=== PATIENT | female | born 1965 | race Caucasian/White ===

== ENCOUNTER 2018-07-24 19:25 | Emergency (ER) | payer OTHER ==
[2018-07-24] MEDS: IBUPROFEN 200 MG TAB PO (21:00)
[2018-07-24] MEDS: ACETAMINOPHEN 325 MG TAB PO (21:00)
[2018-07-24] MEDS: LORAZEPAM 1 MG TAB PO (21:00)
== END 2018-07-24 22:46 | disposition home or self-care (01) ==
LOC: FTE 19:25
DX: S61.451A Open bite of right hand, initial encounter (principal); S59.902A Unspecified injury of left elbow, initial encounter; S79.911A Unspecified injury of right hip, initial encounter; S79.921A Unspecified injury of right thigh, initial encounter; S19.9XXA Unspecified injury of neck, initial encounter; W54.0XXA Bitten by dog, initial encounter; Y92.9 Unspecified place or not applicable
CPT/HCPCS: 72040; 73080-LT; 73510; 99284-25